=== PATIENT | female | born 1975 | race Caucasian/White ===

== ENCOUNTER 2018-10-14 02:13 | Emergency (ER) | payer OTHER ==
[~2018-10-14] VITALS: Ht 165.1 cm; Wt 75.3 kg
--- NOTE | 2018-10-14 02:24 | ED.ADGEN ---
Past History Past Medical History: Constipation, Kidney Stones Past Surgical History: Other Past Surgical History Bladder Lift Adult General Chief Complaint Chief Complaint ".. I ve been hurting really bad tonight.. here on the Lt.. It was in my back... but now more low towards the front... It somewhat like a kidney stone pain.. I ve had the twice before... but it been a long time ago... I feel constipated.. but I ve had a stool.. .. I may be dehydrated.. I just got [place] [facility] [place] [facility].... my father wanted to take some pictures of birds..." HPI HPI Patient is a 43 year old female who presents with above hx and complaints low back pain on Lt. flank. Patient states pain is somewhat similar to prior kidney stones. Patient has had 2 prior kidney stones. Patient does feel she dehydrated when she was in [facility]. Pt. denies any intake of bad food..Pt was in [facility] [place] [facility] during her stay . Patient denies any dysuria. Patient is complaining of severe nausea. No history of trauma. No history immunosuppression. No specific ill contacts. Has had a normal stool. Pain has been intermittent until this morning. Patient normally follows with Dr. Reardon Review of Systems Review of Systems Constitutional: Denies fever or chills [] Eyes: Denies change in visual acuity, redness, or eye pain [] HENT: Denies nasal congestion or sore throat [] Respiratory: Denies cough or shortness of breath [] Cardiovascular: No additional information not addressed in HPI [] GI: Complaints of left flank abdominal pain, nausea. Denies, vomiting, bloody stools or diarrhea [] : Denies dysuria or hematuria [] Musculoskeletal: Left flank back pain. No midline tenderness Integument: Denies rash or skin lesions [] Neurologic: Denies headache, focal weakness or sensory changes [] Endocrine: Denies polyuria or polydipsia [] All other systems were reviewed and found to be within normal limits, except as documented in this note. Family History Family History Noncontributory Current Medications Current Medications Current Medications Medications (Trade) Dose Ordered Sig/Jarad Start Time Stop Time Status Last Admin Dose Admin Diphenhydramine HCl (Benadryl) 25 mg 1X ONCE 10/14/18 07:15 10/14/18 07:16 DC 10/14/18 07:26 25 MG Famotidine (Pepcid Vial) 20 mg 1X ONCE 10/14/18 03:00 10/14/18 03:01 DC 10/14/18 03:16 20 MG Ketorolac Tromethamine (Toradol 30mg Vial) 30 mg 1X ONCE 10/14/18 05:00 10/14/18 05:01 DC 10/14/18 05:39 30 MG Lactated Ringer's 1,000 ml @ 1,000 mls/hr 1X ONCE 10/14/18 04:30 10/14/18 05:29 DC 10/14/18 05:11 1,000 MLS/HR Levofloxacin (Levaquin) 500 mg STK-MED ONCE 10/14/18 06:47 10/14/18 06:48 DC Levofloxacin/ Dextrose 100 ml @ 100 mls/hr 1X ONCE 10/14/18 07:30 10/14/18 07:59 DC 10/14/18 07:25 100 MLS/HR Morphine Sulfate (Morphine 10mg Syringe) 10 mg STK-MED ONCE 10/14/18 03:05 10/14/18 03:06 DC Morphine Sulfate (Morphine 2mg Syringe) 2 mg 1X ONCE 10/14/18 03:30 10/14/18 03:45 DC 10/14/18 03:28 2 MG Ondansetron HCl (Zofran) 8 mg 1X ONCE 10/14/18 03:00 10/14/18 03:01 DC 10/14/18 03:17 8 MG Prochlorperazine Edisylate (Compazine) 10 mg 1X ONCE 10/14/18 07:15 10/14/18 07:16 DC 10/14/18 07:26 10 MG Allergies Allergies Allergies Coded Allergies Type Severity Reaction Last Updated Verified hydrocodone Allergy Severe Rash 10/14/18 Yes Physical Exam Physical Exam Constitutional: Well developed, well nourished, in acute distress, non-toxic appearance. [] HENT: Normocephalic, atraumatic, bilateral external ears normal, oropharynx moist, no oral exudates, nose normal. [] Eyes: PERRLA, EOMI, conjunctiva normal, no discharge. [] Neck: Normal range of motion, no tenderness, supple, no stridor. [] Cardiovascular: Tachycardia Heart rate regular rhythm, no murmur [] Lungs & Thorax: Bilateral breath sounds equal at apexes on to auscultation [] Abdomen: Bowel sounds decreased, soft, left flank tenderness, no masses, no pulsatile masses. [] Pain radiates into the groin area on percussion on the left. Skin: Warm, diaphoretic, no erythema, no rash. [] Back: No tenderness, left CVA tenderness. [] Extremities: No tenderness, no cyanosis, no clubbing, ROM intact, no edema. [] Straight leg lift negative Neurologic: Alert and oriented X 3, normal motor function, normal sensory function, no focal deficits noted. [] Psychologic: Affect anxious, judgement normal, mood normal. Appears intelligent and understands medical issues. Current Patient Data Vital Signs Vital Signs Date Time Temp Pulse Resp B/P (MAP) Pulse Ox O2 Delivery O2 Flow Rate FiO2 10/14/18 07:00 66 20 112/59 (76) 96 Room Air 10/14/18 03:02 98.0 Lab Results Laboratory Tests Test 10/14/18 02:51 10/14/18 06:30 White Blood Count 5.3 x10^3/uL (4.0-11.0) Red Blood Count 4.32 x10^6/uL (3.50-5.40) Hemoglobin 12.8 g/dL (12.0-15.5) Hematocrit 38.6 % (36.0-47.0) Mean Corpuscular Volume 89 fL (79-100) Mean Corpuscular Hemoglobin 30 pg (25-35) Mean Corpuscular Hemoglobin Concent 33 g/dL (31-37) Red Cell Distribution Width 13.0 % (11.5-14.5) Platelet Count 199 x10^3/uL (140-400) Neutrophils (%) (Auto) 66 % (31-73) Lymphocytes (%) (Auto) 22 % (24-48) L Monocytes (%) (Auto) 8 % (0-9) Eosinophils (%) (Auto) 3 % (0-3) Basophils (%) (Auto) 1 % (0-3) Neutrophils # (Auto) 3.5 x10^3uL (1.8-7.7) Lymphocytes # (Auto) 1.2 x10^3/uL (1.0-4.8) Monocytes # (Auto) 0.4 x10^3/uL (0.0-1.1) Eosinophils # (Auto) 0.2 x10^3/uL (0.0-0.7) Basophils # (Auto) 0.0 x10^3/uL (0.0-0.2) Prothrombin Time 9.4 SEC (9.4-11.4) Prothrombin Time INR 0.9 (0.9-1.1) PTT 23 SEC (23-33) Maternal Serum HCG Beta Subunit < 1 mIU/mL (0-6) Sodium Level 139 mmol/L (136-145) Potassium Level 3.9 mmol/L (3.5-5.1) Chloride Level 104 mmol/L (98-107) Carbon Dioxide Level 24 mmol/L (21-32) Anion Gap 11 (6-14) Blood Urea Nitrogen 13 mg/dL (7-20) Creatinine 1.2 mg/dL (0.6-1.0) H Estimated GFR (Cockcroft-Gault) 48.8 Glucose Level 119 mg/dL (70-99) H Calcium Level 9.1 mg/dL (8.5-10.1) Total Bilirubin 0.3 mg/dL (0.2-1.0) Direct Bilirubin 0.1 mg/dL (0.0-0.2) Aspartate Amino Transferase (AST) 19 U/L (15-37) Alanine Aminotransferase (ALT) 24 U/L (14-59) Alkaline Phosphatase 92 U/L (46-116) Total Protein 6.7 g/dL (6.4-8.2) Albumin 3.6 g/dL (3.4-5.0) Lipase 228 U/L (73-393) Serum Test, Qualitative Negative (NEG) Urine Collection Type Void Urine Color Yellow Urine Clarity Hazy Urine pH 5.0 Urine Specific [place] >=1.030 Urine Protein Trace (NEG-TRACE) Urine Glucose (UA) Neg mg/dL (NEG) Urine Ketones (Stick) Neg mg/dL (NEG) Urine Blood Large (NEG) Urine Nitrite Neg (NEG) Urine Bilirubin Neg (NEG) Urine Urobilinogen Dipstick 0.2 mg/dL (0.2 mg/dL) Urine Leukocyte Esterase Neg (NEG) Urine RBC >40 /HPF (0-2) Urine WBC 1-4 /HPF (0-4) Urine Squamous Epithelial Cells Few /LPF Urine Bacteria Few /HPF (0-FEW) Urine Hyaline Casts Few /HPF Urine Mucus Mod /LPF Urine Opiates Screen Pos (NEG) Urine Methadone Screen Neg (NEG) Urine Barbiturates Neg (NEG) Urine Phencyclidine Screen Neg (NEG) Urine Amphetamine/Methamphetamine Neg (NEG) Urine Benzodiazepines Screen Neg (NEG) Urine Cocaine Screen Neg (NEG) Urine Cannabinoids Screen Neg (NEG) Urine Ethyl Alcohol Neg (NEG) EKG EKG [] Radiology/Procedures Radiology/Procedures [][address] [id number] IMAGING REPORT Signed PATIENT: AHSAN LOPEZ ACCOUNT: [id number] : 1975 LOCATION: ER AGE: 43 SEX: F EXAM STATUS: REG ER ORD. PHYSICIAN: MAYE PHAN MD REASON: Left flank pain, hx utereus suspension, kidney stones PROCEDURE: CT ABDOMEN PELVIS WO CONTRAST INDICATION: Left flank pain COMPARISON: None. TECHNIQUE: Axial CT images obtained through the abdomen and pelvis without contrast. Limited assessment of solid organ structures and vasculature secondary to lack of intravenous contrast.. One or more of the following individualized dose reduction techniques were utilized for this examination: 1. Automated exposure control; 2. Adjustment of the mA and/or kV according to patient size; 3. Use of iterative reconstruction technique. FINDINGS: Abdominal aorta is not aneurysmal. No intrahepatic bile duct dilation. Limited evaluation of the pancreas secondary to lack of contrast. Spleen unremarkable. Left-sided hydronephrosis with perinephric edema and proximal hydroureter. 5-6 mm left proximal ureter stone. Urinary bladder is partially distended. Nonobstructive right renal stone without hydronephrosis. Suspected low-density lesion along the right renal cortex which may be cystic in nature but limited evaluation on noncontrast imaging. No periappendiceal inflammatory changes. No dilated loops of bowel to suggest obstruction. Degenerative changes the spine. Heterogeneity within the uterus with some low-density lesion suspected. Degenerative changes the spine with some disc protrusions including at L5-S1 and L4-5. IMPRESSION: 1. Left-sided hydronephrosis and hydroureter with a proximal ureter stone. 2. Suspected low-density lesions within the uterus. Most common cause would be fibroids. 3. Degenerative changes the spine with some disc protrusions identified. Electronically signed by: Kenroy Lopez MD (10/14/2018 5:51 AM) [facility] DICTATED AND SIGNED BY: KENROY LOPEZ MD DATE: 10/14/18 0551 CC: MEAGHAN REARDON MD; MAYE PHAN MD ~ Course & Med Decision Making Course & Med Decision Making Pertinent Labs and Imaging studies reviewed. (See chart for details) Discussed presentation, testing and treatment plan with and Pt. in for transfer to [facility] for further evaluation and treatment and urology consult [] Final Impression Final Impression 1. Renal Colic - Proximal Lt stone with hydronephrosis 2. Mild elevation in creatinine 1.2 Dragon Disclaimer Dragon Disclaimer This electronic medical record was generated, in whole or in part, using a voice recognition dictation system. Discharge Summary Visit Information Final Diagnosis Problems Medical Problems: (1) Flank pain Status: Acute (2) Hydronephrosis Status: Acute (3) Renal colic on left side Status: Acute Brief Hospital Course Allergies Allergies Coded Allergies Type Severity Reaction Last Updated Verified hydrocodone Allergy Severe Rash 10/14/18 Yes Vital Signs Vital Signs Date Time Temp Pulse Resp B/P (MAP) Pulse Ox O2 Delivery O2 Flow Rate FiO2 10/14/18 07:00 66 20 112/59 (76) 96 Room Air 10/14/18 03:02 98.0 Lab Results Laboratory Tests Test 10/14/18 02:51 10/14/18 06:30 White Blood Count 5.3 x10^3/uL (4.0-11.0) Red Blood Count 4.32 x10^6/uL (3.50-5.40) Hemoglobin 12.8 g/dL (12.0-15.5) Hematocrit 38.6 % (36.0-47.0) Mean Corpuscular Volume 89 fL (79-100) Mean Corpuscular Hemoglobin 30 pg (25-35) Mean Corpuscular Hemoglobin Concent 33 g/dL (31-37) Red Cell Distribution Width 13.0 % (11.5-14.5) Platelet Count 199 x10^3/uL (140-400) Neutrophils (%) (Auto) 66 % (31-73) Lymphocytes (%) (Auto) 22 % (24-48) Monocytes (%) (Auto) 8 % (0-9) Eosinophils (%) (Auto) 3 % (0-3) Basophils (%) (Auto) 1 % (0-3) Neutrophils # (Auto) 3.5 x10^3uL (1.8-7.7) Lymphocytes # (Auto) 1.2 x10^3/uL (1.0-4.8) Monocytes # (Auto) 0.4 x10^3/uL (0.0-1.1) Eosinophils # (Auto) 0.2 x10^3/uL (0.0-0.7) Basophils # (Auto) 0.0 x10^3/uL (0.0-0.2) Prothrombin Time 9.4 SEC (9.4-11.4) Prothromb Time International Ratio 0.9 (0.9-1.1) Activated Partial Thromboplast Time 23 SEC (23-33) Maternal Serum HCG Beta Subunit < 1 mIU/mL (0-6) Sodium Level 139 mmol/L (136-145) Potassium Level 3.9 mmol/L (3.5-5.1) Chloride Level 104 mmol/L (98-107) Carbon Dioxide Level 24 mmol/L (21-32) Anion Gap 11 (6-14) Blood Urea Nitrogen 13 mg/dL (7-20) Creatinine 1.2 mg/dL (0.6-1.0) Estimated GFR (Cockcroft-Gault) 48.8 Glucose Level 119 mg/dL (70-99) Calcium Level 9.1 mg/dL (8.5-10.1) Total Bilirubin 0.3 mg/dL (0.2-1.0) Direct Bilirubin 0.1 mg/dL (0.0-0.2) Aspartate Amino Transf (AST/SGOT) 19 U/L (15-37) Alanine Aminotransferase (ALT/SGPT) 24 U/L (14-59) Alkaline Phosphatase 92 U/L (46-116) Total Protein 6.7 g/dL (6.4-8.2) Albumin 3.6 g/dL (3.4-5.0) Lipase 228 U/L (73-393) Serum Test, Qualitative Negative (NEG) Urine Collection Type Void Urine Color Yellow Urine Clarity Hazy Urine pH 5.0 Urine Specific [place] >=1.030 Urine Protein Trace (NEG-TRACE) Urine Glucose (UA) Neg mg/dL (NEG) Urine Ketones (Stick) Neg mg/dL (NEG) Urine Blood Large (NEG) Urine Nitrite Neg (NEG) Urine Bilirubin Neg (NEG) Urine Urobilinogen Dipstick 0.2 mg/dL (0.2 mg/dL) Urine Leukocyte Esterase Neg (NEG) Urine RBC >40 /HPF (0-2) Urine WBC 1-4 /HPF (0-4) Urine Squamous Epithelial Cells Few /LPF Urine Bacteria Few /HPF (0-FEW) Urine Hyaline Casts Few /HPF Urine Mucus Mod /LPF Urine Opiates Screen Pos (NEG) Urine Methadone Screen Neg (NEG) Urine Barbiturates Neg (NEG) Urine Phencyclidine Screen Neg (NEG) Urine Amphetamine/Methamphetamine Neg (NEG) Urine Benzodiazepines Screen Neg (NEG) Urine Cocaine Screen Neg (NEG) Urine Cannabinoids Screen Neg (NEG) Urine Ethyl Alcohol Neg (NEG) Brief Hospital Course Ms. Lopez is a 43 old female who presented with Lt renal colic, stone and hydronephrosis. Transfer to [facility] Dr. Lima and urology consult. Discharge Information Condition at Discharge: Stable Disposition/Orders: D/C to Another Facility Dischare Medications Current Medications Lactated Ringer's 1,000 ml @ 1,000 mls/hr Q1H IV Last administered on 10/14/18at 02:56; Admin Dose 1,000 MLS/HR; Start 10/14/18 at 02:43; Stop 10/14/18 at 03:42; Status DC Ondansetron HCl (Zofran) 8 mg 1X ONCE IV Last administered on 10/14/18at 03:17; Admin Dose 8 MG; Start 10/14/18 at 03:00; Stop 10/14/18 at 03:01; Status DC Famotidine (Pepcid Vial) 20 mg 1X ONCE IVP Last administered on 10/14/18at 03:16; Admin Dose 20 MG; Start 10/14/18 at 03:00; Stop 10/14/18 at 03:01; Status DC Morphine Sulfate (Morphine 10mg Syringe) 10 mg 1X ONCE SQ Last administered on 10/14/18at 03:16; Admin Dose 10 MG; Start 10/14/18 at 03:00; Stop 10/14/18 at 03:05; Status DC Morphine Sulfate (Morphine 10mg Syringe) 10 mg STK-MED ONCE .ROUTE ; Start 10/14/18 at 03:05; Stop 10/14/18 at 03:06; Status DC Morphine Sulfate (Morphine 2mg Syringe) 2 mg STK-MED ONCE .ROUTE ; Start 10/14/18 at 03:18; Stop 10/14/18 at 03:19; Status DC Morphine Sulfate (Morphine 2mg Syringe) 2 mg 1X ONCE IV Last administered on 10/14/18at 03:28; Admin Dose 2 MG; Start 10/14/18 at 03:30; Stop 10/14/18 at 03:45; Status DC Lactated Ringer's 1,000 ml @ 1,000 mls/hr 1X ONCE IV Last administered on 10/14/18at 05:11; Admin Dose 1,000 MLS/HR; Start 10/14/18 at 04:30; Stop 10/14/18 at 05:29; Status DC Ketorolac Tromethamine (Toradol 30mg Vial) 30 mg 1X ONCE IV Last administered on 10/14/18at 05:39; Admin Dose 30 MG; Start 10/14/18 at 05:00; Stop 10/14/18 at 05:01; Status DC Levofloxacin (Levaquin) 500 mg 1X ONCE PO Last administered on 10/14/18at 06:49; Admin Dose 500 MG; Start 10/14/18 at 07:00; Stop 10/14/18 at 07:23; Status DC Levofloxacin (Levaquin) 500 mg STK-MED ONCE .ROUTE ; Start 10/14/18 at 06:47; Stop 10/14/18 at 06:48; Status DC Diphenhydramine HCl (Benadryl) 25 mg 1X ONCE IVP Last administered on 10/14/18at 07:26; Admin Dose 25 MG; Start 10/14/18 at 07:15; Stop 10/14/18 at 07:16; Status DC Prochlorperazine Edisylate (Compazine) 10 mg 1X ONCE IV Last administered on 10/14/18at 07:26; Admin Dose 10 MG; Start 10/14/18 at 07:15; Stop 10/14/18 at 07:16; Status DC Levofloxacin/ Dextrose 100 ml @ 100 mls/hr 1X ONCE IV Last administered on 10/14/18at 07:25; Admin Dose 100 MLS/HR; Start 10/14/18 at 07:30; Stop 10/14/18 at 07:59; Status DC Dragon Disclaimer This chart was dictated in whole or in part using Voice Recognition software in a busy, high-work load, and often noisy Emergency Department environment. It may contain unintended and wholly unrecognized errors or omissions. MAYE PHAN MD Oct 14, 2018 02:24
[2018-10-14] MEDS ORDERED: IV RINGERS SOLUTION,LACTATED 1,000 ML IV SCH (02:43)
[2018-10-14] MEDS ORDERED: FAMOTIDINE 20 MG/2 ML VIAL IVP ONE (03:00)
[2018-10-14] MEDS ORDERED: MORPHINE SULFATE 10 MG/ML SYRINGE. SQ ONE (03:00)
[2018-10-14] MEDS ORDERED: ONDANSETRON PF 4 MG/2 ML VIAL. IV ONE (03:00)
[2018-10-14] MEDS ORDERED: MORPHINE SULFATE 10 MG/ML SYRINGE. ONE (03:05)
[2018-10-14 03:09] LABS: BASO % 1 % (0-3); EOS # 0.2 x10^3/uL (0.0-0.7); EOS % 3 % (0-3); HEMATOCRIT 38.6 % (36.0-47.0); HEMOGLOBIN 12.8 g/dL (12.0-15.5); LYMPH # 1.2 x10^3/uL (1.0-4.8); LYMPH % 22 % (24-48); MEAN CORPUSCULAR HEMOGLOBIN 30 pg (25-35); MEAN CORPUSCULAR HGB CONC 33 g/dL (31-37); MEAN CORPUSCULAR VOLUME 89 fL (79-100); MONO # 0.4 x10^3/uL (0.0-1.1); MONO % 8 % (0-9); NEUT # 3.5 x10^3uL (1.8-7.7); NEUT % 66 % (31-73); PLATELET COUNT 199 x10^3/uL (140-400); RED BLOOD COUNT 4.32 x10^6/uL (3.50-5.40); WHITE BLOOD COUNT 5.3 x10^3/uL (4.0-11.0)
[2018-10-14] MEDS ORDERED: MORPHINE SULFATE 2 MG/ML DISP.SYRIN. ONE (03:18)
[2018-10-14] MEDS ORDERED: MORPHINE SULFATE 2 MG/ML DISP.SYRIN. IV ONE (03:30)
[2018-10-14 04:27] LABS: PREG TEST PT QUAL NEGATIVE (NEG)
[2018-10-14] MEDS ORDERED: IV RINGERS SOLUTION,LACTATED 1,000 ML IV ONE (04:30)
[2018-10-14] MEDS ORDERED: KETOROLAC 30 MG/ML VIAL. IV ONE (05:00)
--- NOTE | 2018-10-14 05:54 | RAD ---
INDICATION: Left flank pain COMPARISON: None. TECHNIQUE: Axial CT images obtained through the abdomen and pelvis without contrast. Limited assessment of solid organ structures and vasculature secondary to lack of intravenous contrast.. One or more of the following individualized dose reduction techniques were utilized for this examination: 1. Automated exposure control; 2. Adjustment of the mA and/or kV according to patient size; 3. Use of iterative reconstruction technique. FINDINGS: Abdominal aorta is not aneurysmal. No intrahepatic bile duct dilation. Limited evaluation of the pancreas secondary to lack of contrast. Spleen unremarkable. Left-sided hydronephrosis with perinephric edema and proximal hydroureter. 5-6 mm left proximal ureter stone. Urinary bladder is partially distended. Nonobstructive right renal stone without hydronephrosis. Suspected low-density lesion along the right renal cortex which may be cystic in nature but limited evaluation on noncontrast imaging. No periappendiceal inflammatory changes. No dilated loops of bowel to suggest obstruction. Degenerative changes the spine. Heterogeneity within the uterus with some low-density lesion suspected. Degenerative changes the spine with some disc protrusions including at L5-S1 and L4-5. IMPRESSION: 1. Left-sided hydronephrosis and hydroureter with a proximal ureter stone. 2. Suspected low-density lesions within the uterus. Most common cause would be fibroids. 3. Degenerative changes the spine with some disc protrusions identified. Electronically signed by: Nelson Lopez MD (10/14/2018 5:51 AM) [id number]
[2018-10-14 06:32] LABS: ALBUMIN 3.6 g/dL (3.4-5.0); CALCIUM 9.1 mg/dL (8.5-10.1); CREATININE 1.2 mg/dL (0.6-1.0); DIRECT BILIRUBIN 0.1 mg/dL (0.0-0.2); GFR 48.8; POTASSIUM 3.9 mmol/L (3.5-5.1); TOTAL BILIRUBIN 0.3 mg/dL (0.2-1.0); TOTAL PROTEIN 6.7 g/dL (6.4-8.2)
[2018-10-14] MEDS ORDERED: levoFLOXacin 500 MG TABLET ONE (06:47)
[2018-10-14 06:56] LABS: BARBITURATES NEG (NEG); BENZODIAZEPINES NEG (NEG); CANNABINOIDS NEG (NEG); COCAINE NEG (NEG); METHADONE NEG (NEG); OPIATES POS (NEG); PHENCYCLIDINE NEG (NEG)
[2018-10-14 06:57] LABS: AMPHETAMINE/METHAMPHETAMINE NEG (NEG)
[2018-10-14 07:00] VITALS: BP 112/59
[2018-10-14] MEDS ORDERED: levoFLOXacin 500 MG TABLET PO ONE (07:00)
[2018-10-14 07:01] LABS: BACTERIA,URINE FEW /HPF (0-FEW); BILIRUBIN,URINE NEG (NEG); CLARITY,URINE HAZY; COLOR,URINE YELLOW; GLUCOSE,URINE NEG (NEG); HYALINE CASTS, URINE FEW /HPF; NITRITE,URINE NEG (NEG); RBC,URINE >40 /HPF (0-2); SQUAMOUS EPITHELIAL CELL,UR FEW /LPF; UROBILINOGEN,URINE 0.2 mg/dL (0.2 mg/dL)
[2018-10-14] MEDS ORDERED: diphenhydrAMINE 50 MG/ML VIAL IVP ONE (07:15)
[2018-10-14] MEDS ORDERED: PROCHLORPERAZINE 10 MG/2 ML VIAL. IV ONE (07:15)
--- NOTE | 2018-10-14 07:59 | RAD ---
Acute Abdominal Series: 10/14/2018 2:43 AM Reason for study: Left flank pain. Comparison studies: CT abdomen/pelvis October 14, 2018. Technique: Frontal view of the chest was obtained along with supine and upright views of the abdomen. Findings: Nonobstructive bowel gas pattern. No air fluid levels or free air. The lungs are clear without acute consolidative opacity. No pleural effusion or pneumothorax. The cardiac and mediastinal contours are normal. Suspect a left ureteral calculus measuring 4 mm at the level of the left L3 transverse process. Visualized osseous structures are intact. IMPRESSION: 1. 4 mm calculus is identified along the proximal left ureter at the level of the left L3 transverse process. Findings likely correspond with calculus identified on CT. 2. No acute cardiopulmonary process. Nonobstructive bowel gas pattern. Electronically signed by: Elda Pulido MD (10/14/2018 7:56 AM) [facility]
== END 2018-10-14 07:59 | disposition short-term general hospital (02) ==
LOC: ER 02:13
DX: N13.2 Hydronephrosis with renal and ureteral calculous obstruction (principal); R79.89 Other specified abnormal findings of blood chemistry; Z87.442 Personal history of urinary calculi; Z88.5 Allergy status to narcotic agent
CPT/HCPCS: 36415; 74022; 74176; 80048; 80076; 80307; 81001; 83690; 84702; 84703; 85025; 85610; 85730; 96365; 96372; 96375; 99285; J0780; J1200; J1885; J1956; J2270; J2405; J3490; J7120

== ENCOUNTER → 2018-10-31 | Outpatient (CLI) | payer OTHER ==
[2018-10-14 07:00] VITALS: BP 112/59
--- NOTE | 2018-11-01 00:23 | RAD ---
EXAM: ABDOMEN ONE VIEW. HISTORY: Left ureteral stent placement. Renal stone. COMPARISON: 10/14/2018. FINDINGS: A frontal view of the abdomen is obtained. A left ureteral stent is in place. A 3 mm proximal ureteral calculus is vaguely detectable adjacent to the stent just proximal to the L3 transverse process. No additional renal calculi are seen bilaterally. Throughout the right colon suggests mild constipation. There are no distended small bowel loops. There is gas distally. IMPRESSION: 1. Suspect a 3 mm left proximal ureteral calculus. Left ureteral stent in expected position. 2. Correlate for mild constipation. Electronically signed by: Roseline Saldana MD (11/01/2018 12:20 AM) [id number]
== END | disposition home or self-care (01) ==
LOC: DXRAD 15:52
PROVIDERS: ATTEND Urology
DX: N20.1 Calculus of ureter (principal); Z96.0 Presence of urogenital implants
CPT/HCPCS: 74018